=== PATIENT | female | born 1960 | race Caucasian/White ===

== ENCOUNTER 2019-12-15 15:47 | Emergency (ER) | payer MEDICAID ==
[2019-12-15] MEDS ORDERED: Sodium Chloride 0.9% 2.5 ML Syringe FLUSH PRN (16:21)
[2019-12-15] MEDS ORDERED: Sodium Chloride 0.9% 10 ML Syringe FLUSH PRN (16:21)
--- NOTE | 2019-12-15 16:27 | EDM.PDOC ---
ED HPI GENERAL MEDICAL PROBLEM - General Chief Complaint: Gastrointestinal Problem Stated Complaint: RECTAL BLEEDING Time Seen by Provider: 12/15/19 15:53 Source of Information: Reports: Patient History Limitations: Reports: No Limitations - History of Present Illness INITIAL COMMENTS - FREE TEXT/NARRATIVE: History of present illness: 59-year-old female presenting with rectal bleeding for the last 2 days. She thought on the first day that she had to have some diarrhea, and when she sat down on the toilet and had what felt like diarrhea, she noticed that it was actually straight blood. She does report history of rectal bleeding on and off associated with straining. Over she has never had a bleed like this before. She had her last colonoscopy in August of this year and was told she had polyps that were nonmalignant but that she had rectal prolapse and she had scheduled surgery for September but due to the pandemic surgery was deferred. Denies any chest pain or difficulty breathing. She does report she has been undergoing intense stress lately because she has been caring for her daughter who had a stroke and for all her daughter's pets. She also reports that she recently found out she had stage IV kidney disease that she did not know of previously. 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 She has not had any adjustment in the dose, although she reports that due to her stress and caring for her daughter she has occasionally missed some doses or taken it later in the day than usual. She also noted that her right leg skin is started to become red and itchy and that her right leg was slightly swollen compared to the left, which is where she had a previous DVT years ago and her symptoms today are similar to when the DVT was first diagnosed years ago. Past medical history, lupus, cholesterol, colon polyps, PE/DVT, ? [place] filter? Review of systems: As per history of present illness and below otherwise all systems reviewed and negative. Past medical history: As per history of present illness and as reviewed below otherwise noncontributory. Surgical history: As per history of present illness and as reviewed below otherwise noncontributory. Social history: No reported history of drug or alcohol abuse. Family history: As per history of present illness and as reviewed below otherwise noncontributory. Physical exam: GEN: no acute distress, well appearing HEENT: Atraumatic, normocephalic, mucous membranes moist, Neck: supple, nontender, trachea midline. Lungs: No respiratory distress. Heart: RRR Abdomen: Soft, nondistended, nontender. Rectal exam: No signs of rectal prolapse nor external hemorrhoids. External exam unremarkable. No stool in the vault or on the glove. No visible blood. Occult blood is positive. Control tested and successful. Back: nontender Extremities: Atraumatic. Neurovascularly intact. Right calf tenderness, mild erythema and some swelling. Neuro: Awake, alert, oriented. Neuro Exam nonfocal. Skin: warm, dry, no lesions, mild erythema over the right calf/leg that is not warm to touch and does not appear cellulitic Diagnostics: [] Therapeutics: [] MDM: Rectal bleeding, heavy at first and now minimal, on Xarelto for chronic PE/DVT. Also complains of right lower extremity swelling. Will check ultrasound. Ultrasound negative for DVT. Hemoglobin 11.6. INR not elevated. Patient in no distress. Vital signs stable. Discussed with admitting hospitalist and general surgeon over the phone, both recommended admission for monitoring based on patient's anticoagulation usage. However on reassessment the patient refused admission but agrees to return to the ER if the bleeding worsens at all. The bleeding has now stopped. Impression: [] Plan: [] Definitive disposition and diagnosis as appropriate pending reevaluation and review of above. Right Leg Pain Score (Numeric/FACES): 8 - Related Data Allergies Allergy/AdvReac Type Severity Reaction Status Date / Time NSAIDS (Non-Steroidal Allergy Cardiac Verified 12/15/19 16:08 Anti-Inflamma Arrest Penicillins Allergy Hives Verified 12/15/19 16:08 Home Meds: Home Meds Omeprazole 20 mg PO DAILY 12/15/19 [History] Rivaroxaban [Xarelto] 20 mg PO DAILY 12/15/19 [History] atenoloL [Atenolol] 50 mg PO DAILY 12/15/19 [History] hydroCHLOROthiazide [Hydrochlorothiazide] 25 mg PO DAILY 12/15/19 [History] lisinopriL [Lisinopril] 40 mg PO DAILY 12/15/19 [History] Past Medical History Cardiovascular History: Reports: Blood Clots/VTE/DVT, High Cholesterol, Hypertension, Prior Cardiac Arrest Gastrointestinal History: Reports: Colon Polyp, GERD - Infectious Disease History Infectious Disease History: Reports: None - Past Surgical History GI Surgical History: Reports: Colonoscopy, Polypectomy Social & Family History - Family History Family Medical History: Noncontributory - Tobacco Use Smoking Status *Q: Current Every Day Smoker Years of Tobacco use: 30 Packs/Tins Daily: 1 - Caffeine Use Caffeine Use: Reports: None - Recreational Drug Use Recreational Drug Use: Yes Drug Use in Last 12 Months: No Recreational Drug Type: Reports: Cocaine ED ROS GENERAL - Review of Systems Review Of Systems: See Below (See dictation) ED EXAM, GI/ABD - Physical Exam Exam: See Below (See dictation) Course - Vital Signs Last Recorded V/S: Last Vital Signs Temp 97.6 F 12/15/19 16:12 Pulse 78 12/15/19 16:12 Resp 18 12/15/19 16:12 BP 129/72 12/15/19 16:12 Pulse Ox 97 12/15/19 16:12 - Orders/Labs/Meds Orders: Active Orders 24 hr Category Date Time Status Patient Status [ADT] Routine ADT 12/15/19 17:57 Active Notify Provider Consults [RC] ASDIRECTED Care 12/15/19 17:58 Active Consult to Physician [CONS] Stat Cons 12/15/19 17:57 Active Saline Lock Insert [OM.PC] Stat Oth 12/15/19 16:22 Ordered Labs: Laboratory Tests 12/15/19 12/15/19 12/15/19 Range/Units 16:44 16:44 16:44 WBC 5.52 (4.0-11.0) K/uL RBC 3.85 L (4.30-5.90) M/uL Hgb 11.6 L (12.0-16.0) g/dL Hct 36.2 (36.0-46.0) % MCV 94.0 (80.0-98.0) fL MCH 30.1 (27.0-32.0) pg MCHC 32.0 (31.0-37.0) g/dL RDW Std Deviation 45.4 (28.0-62.0) fl RDW Coeff of Liang 13 (11.0-15.0) % Plt Count 218 (150-400) K/uL MPV 10.60 (7.40-12.00) fL Neut % (Auto) 42.4 L (48.0-80.0) % Lymph % (Auto) 44.2 H (16.0-40.0) % [place] % (Auto) 10.1 (0.0-15.0) % Eos % (Auto) 3.1 (0.0-7.0) % Baso % (Auto) 0.2 (0.0-1.5) % Neut # (Auto) 2.3 (1.4-5.7) K/uL Lymph # (Auto) 2.4 (0.6-2.4) K/uL [place] # (Auto) 0.6 (0.0-0.8) K/uL Eos # (Auto) 0.2 (0.0-0.7) K/uL Baso # (Auto) 0.0 (0.0-0.1) K/uL Nucleated RBC % 0.0 /100WBC Nucleated RBCs # 0 K/uL INR 1.29 Sodium 143 (136-145) mmol/L Potassium 4.0 (3.5-5.1) mmol/L Chloride 107 (98-107) mmol/L Carbon Dioxide 26.0 (21.0-32.0) mmol/L BUN 32 H (7.0-18.0) mg/dL Creatinine 1.5 H (0.6-1.0) mg/dL Est Cr Clr Drug Dosing 39.27 mL/min Estimated GFR (MDRD) 35.5 ml/min Glucose 87 (74-106) mg/dL Calcium 8.9 (8.5-10.1) mg/dL Total Bilirubin 0.3 (0.2-1.0) mg/dL AST 33 (15-37) IU/L ALT 35 (14-63) IU/L Alkaline Phosphatase 47 (46-116) U/L Total Protein 7.8 (6.4-8.2) g/dL Albumin 4.0 (3.4-5.0) g/dL Globulin 3.8 (2.6-4.0) g/dL Albumin/Globulin Ratio 1.1 (0.9-1.6) Meds: Medications Discontinued Medications Generic Name Dose Route Start Last Admin Trade Name Freq PRN Reason Stop Dose Admin Sodium Chloride 10 ml 12/15/19 16:21 Saline Flush FLUSH ASDIRECTED PRN Keep Vein Open Sodium Chloride 2.5 ml 12/15/19 16:21 Saline Flush FLUSH ASDIRECTED PRN Keep Vein Open - Re-Assessments/Exams Free Text/Narrative Re-Assessment/Exam: 12/15/19 17:[address] Snow, hospitalist, in regards to possible admission versus discharge he recommends to discuss case with Dr. Ogden, the surgeon. I did discuss this case with Dr. Ogden who requests to admit the patient to the hospitalist and he will consult on the patient and continue to monitor in case of increasing or continued bleeding and in case she may need endoscopy. 12/15/19 18:00 When I went to discuss final disposition planning with the patient, she reports that she is very concerned about leaving her daughter alone at home. She refused admission. She signed AMA paperwork. Dr. Snow and Dr. Ogden were notified. Departure - Departure Time of Disposition: 17:56 Disposition: Against Medical Advice 07 Clinical Impression: Rectal bleeding - Discharge Information Referrals: PCP,Not In Area [Primary Care Provider] - Forms: ED Department Discharge Sepsis Event Note (ED) - Evaluation Sepsis Screening Result: No Definite Risk - Focused Exam Vital Signs: Vital Signs Temp Pulse Resp BP Pulse Ox 12/15/19 16:12 97.6 F 78 18 129/72 97 - My Orders Last 24 Hours: My Active Orders 12/15/19 16:22 Saline Lock Insert [OM.PC] Stat 12/15/19 17:57 Patient Status [ADT] Routine Consult to Physician [CONS] Stat 12/15/19 17:58 Notify Provider Consults [RC] ASDIRECTED - Assessment/Plan Last 24 Hours: My Active Orders 12/15/19 16:22 Saline Lock Insert [OM.PC] Stat 12/15/19 17:57 Patient Status [ADT] Routine Consult to Physician [CONS] Stat 12/15/19 17:58 Notify Provider Consults [RC] ASDIRECTED
--- NOTE | 2019-12-15 17:35 | US ---
Right lower extremity deep venous ultrasound: Duplex and color Doppler evaluation was obtained of the right common femoral, superficial femoral, popliteal, posterior tibial and peroneal veins. Findings: Normal compression and phasic flow is seen. Impression: 1. No evidence of deep venous thrombosis within the right lower extremity. Diagnostic code #1 This report was dictated in MDT
--- NOTE | 2019-12-16 09:08 | PCM.SN.2 ---
- Free Text/Narrative Note: pt left AMA before provider able to attend to.
== END 2019-12-15 18:13 | disposition left against medical advice (07) ==
LOC: MW.ED 15:47
DX: K62.5 Hemorrhage of anus and rectum (principal); I10 Essential (primary) hypertension; K21.9 Gastro-esophageal reflux disease without esophagitis; Z86.718 Personal history of other venous thrombosis and embolism; F17.210 Nicotine dependence, cigarettes, uncomplicated; Z88.0 Allergy status to penicillin; Z88.8 Allergy status to other drugs, medicaments and biological substances; Z79.01 Long term (current) use of anticoagulants; Z79.899 Other long term (current) drug therapy
CPT/HCPCS: 36415; 80053; 85025; 85610; 93971-26-RT; 93971-RT; 99284-25

== ENCOUNTER 2019-12-20 21:30 | Emergency (ER) | payer MEDICAID ==
--- NOTE | 2019-12-20 22:14 | EDM.PDOC ---
ED HPI GENERAL MEDICAL PROBLEM - General Chief Complaint: Gastrointestinal Problem Stated Complaint: rectal bleeding Time Seen by Provider: 12/20/19 21:50 Source of Information: Reports: Patient History Limitations: Reports: No Limitations - History of Present Illness INITIAL COMMENTS - FREE TEXT/NARRATIVE: 59-year-old female with history of CKD, DVT, PE, lupus, rectal prolapse presents with rectal bleeding. She is currently on Xarelto. She is visiting from [place] and plans to leave for [place] tomorrow. She had a colonoscopy done in August and subsequently had polypectomy performed. She was supposed to have surgery performed for her rectal prolapse in September but was deferred secondary to COVID. She was seen in the ED here last week and was discharged after having right red blood per rectum. Tonight she tried to have a bowel movement and had bright red blood per rectum x2 episodes. She denies rectal pain, abdominal pain, fever, chills, nausea, vomiting, chest pain, shortness of breath, lightheadedness, near syncope. She wants to make sure that she is safe to go back to [place] tomorrow. ROS: A 10-point review of systems, other than pertinent positives and negatives as stated per HPI, is otherwise negative PHYSICAL EXAM General: AOx4, GCS = 15, No distress HEENT: dry mucous membrane Neck: supple, no meningismus, no Kernig or Brudzinski Cardiac: S1S2 RRR Respiratory: CTAB, no crackles or rales, no wheezing Abdomen: Soft, nontender, no rebound or guarding, nondistended, no pulsatile mass. Back: nontender Musculoskeletal: NVI distally, no deformity Neuro: No focal deficits, CN 2 - 12 WNL. MEDICAL DECISION MAKING: I reviewed the patients past medical records, lab and radiographic findings. I discussed the case with family members. My differential diagnosis included: GI bleed, rectal prolapse, electrolyte abnormality. Her hemoglobin on 12/14 = 11.6, today she is at 12.3, improved from previous. She is not tachycardic or hypotensive, she does not have pale conjunctiva, she is not near syncopal on history, she denies chest pain or shortness of breath, I do not suspect she needs to be admitted for emergent GI consult. Back Pain Score (Numeric/FACES): 7 - Related Data Allergies Allergy/AdvReac Type Severity Reaction Status Date / Time NSAIDS (Non-Steroidal Allergy Cardiac Verified 12/20/19 21:57 Anti-Inflamma Arrest Penicillins Allergy Hives Verified 12/20/19 21:57 Home Meds: Home Meds Omeprazole 20 mg PO DAILY 12/15/19 [History] Rivaroxaban [Xarelto] 20 mg PO DAILY 12/15/19 [History] atenoloL [Atenolol] 50 mg PO DAILY 12/15/19 [History] hydroCHLOROthiazide [Hydrochlorothiazide] 25 mg PO DAILY 12/15/19 [History] lisinopriL [Lisinopril] 40 mg PO DAILY 12/15/19 [History] Past Medical History Cardiovascular History: Reports: Blood Clots/VTE/DVT, High Cholesterol, Hypertension, Prior Cardiac Arrest Gastrointestinal History: Reports: Colon Polyp, GERD - Infectious Disease History Infectious Disease History: Reports: None - Past Surgical History GI Surgical History: Reports: Colonoscopy, Polypectomy Social & Family History - Family History Family Medical History: Noncontributory - Caffeine Use Caffeine Use: Reports: None ED ROS GENERAL - Review of Systems Review Of Systems: See Below (see dictation) ED EXAM, GI/ABD - Physical Exam Exam: See Below General Appearance: Alert Course - Vital Signs Last Recorded V/S: Last Vital Signs Temp 96.6 F L 12/21/19 00:42 Pulse 80 12/21/19 00:42 Resp 18 12/21/19 00:42 BP 119/72 12/21/19 00:42 Pulse Ox 99 12/21/19 00:42 - Orders/Labs/Meds Orders: Active Orders 24 hr Category Date Time Status Saline Lock Insert [OM.PC] Stat Oth 12/20/19 22:07 Ordered Labs: Laboratory Tests 12/20/19 12/20/19 12/20/19 Range/Units 22:25 22:25 22:25 WBC 8.86 (4.0-11.0) K/uL RBC 4.09 L (4.30-5.90) M/uL Hgb 12.3 (12.0-16.0) g/dL Hct 38.6 (36.0-46.0) % MCV 94.4 (80.0-98.0) fL MCH 30.1 (27.0-32.0) pg MCHC 31.9 (31.0-37.0) g/dL RDW Std Deviation 45.2 (28.0-62.0) fl RDW Coeff of Liang 13 (11.0-15.0) % Plt Count 252 (150-400) K/uL MPV 10.50 (7.40-12.00) fL Neut % (Auto) 57.7 (48.0-80.0) % Lymph % (Auto) 29.6 (16.0-40.0) % [place] % (Auto) 10.7 (0.0-15.0) % Eos % (Auto) 1.9 (0.0-7.0) % Baso % (Auto) 0.1 (0.0-1.5) % Neut # (Auto) 5.1 (1.4-5.7) K/uL Lymph # (Auto) 2.6 H (0.6-2.4) K/uL [place] # (Auto) 1.0 H (0.0-0.8) K/uL Eos # (Auto) 0.2 (0.0-0.7) K/uL Baso # (Auto) 0.0 (0.0-0.1) K/uL Nucleated RBC % 0.0 /100WBC Nucleated RBCs # 0 K/uL INR 1.16 APTT 27.9 (18.6-31.3) SEC Lactate (0.20-2.00) mmol/L Sodium 142 (136-145) mmol/L Potassium 3.9 (3.5-5.1) mmol/L Chloride 105 (98-107) mmol/L Carbon Dioxide 26.7 (21.0-32.0) mmol/L BUN 31 H (7.0-18.0) mg/dL Creatinine 1.5 H (0.6-1.0) mg/dL Est Cr Clr Drug Dosing 40.37 mL/min Estimated GFR (MDRD) 35.5 ml/min Glucose 102 (74-106) mg/dL Calcium 8.8 (8.5-10.1) mg/dL Total Bilirubin 0.3 (0.2-1.0) mg/dL AST 31 (15-37) IU/L ALT 38 (14-63) IU/L Alkaline Phosphatase 55 (46-116) U/L Troponin I < 0.050 (0.000-0.056) ng/mL Total Protein 8.3 H (6.4-8.2) g/dL Albumin 4.5 (3.4-5.0) g/dL Globulin 3.8 (2.6-4.0) g/dL Albumin/Globulin Ratio 1.2 (0.9-1.6) Lipase 165 (73-393) U/L Blood Type Antibody Screen 12/20/19 12/20/19 12/21/19 Range/Units 22:25 22:25 00:38 WBC (4.0-11.0) K/uL RBC (4.30-5.90) M/uL Hgb 11.2 L (12.0-16.0) g/dL Hct (36.0-46.0) % MCV (80.0-98.0) fL MCH (27.0-32.0) pg MCHC (31.0-37.0) g/dL RDW Std Deviation (28.0-62.0) fl RDW Coeff of Liang (11.0-15.0) % Plt Count (150-400) K/uL MPV (7.40-12.00) fL Neut % (Auto) (48.0-80.0) % Lymph % (Auto) (16.0-40.0) % [place] % (Auto) (0.0-15.0) % Eos % (Auto) (0.0-7.0) % Baso % (Auto) (0.0-1.5) % Neut # (Auto) (1.4-5.7) K/uL Lymph # (Auto) (0.6-2.4) K/uL [place] # (Auto) (0.0-0.8) K/uL Eos # (Auto) (0.0-0.7) K/uL Baso # (Auto) (0.0-0.1) K/uL Nucleated RBC % /100WBC Nucleated RBCs # K/uL INR APTT (18.6-31.3) SEC Lactate 0.6 (0.20-2.00) mmol/L Sodium (136-145) mmol/L Potassium (3.5-5.1) mmol/L Chloride (98-107) mmol/L Carbon Dioxide (21.0-32.0) mmol/L BUN (7.0-18.0) mg/dL Creatinine (0.6-1.0) mg/dL Est Cr Clr Drug Dosing mL/min Estimated GFR (MDRD) ml/min Glucose (74-106) mg/dL Calcium (8.5-10.1) mg/dL Total Bilirubin (0.2-1.0) mg/dL AST (15-37) IU/L ALT (14-63) IU/L Alkaline Phosphatase (46-116) U/L Troponin I (0.000-0.056) ng/mL Total Protein (6.4-8.2) g/dL Albumin (3.4-5.0) g/dL Globulin (2.6-4.0) g/dL Albumin/Globulin Ratio (0.9-1.6) Lipase (73-393) U/L Blood Type A NEGATIVE Antibody Screen NEGATIVE - Re-Assessments/Exams Free Text/Narrative Re-Assessment/Exam: 12/21/19 00:56 After treatments and a prolonged observation period in the ER, the patient improved clinically and is stable for discharge. I performed a repeat examination and the patient has not demonstrated any new abnormal findings. Patient exhibits normal vital signs and has exhibited a normal gait. I advised the patient to return to the ER for reevaluation if symptoms worsened, and to follow up with their PCP at [facility] within 2-3 days. Departure - Departure Time of Disposition: 00:55 Disposition: Home, Self-Care 01 Condition: Good Clinical Impression: Rectal bleeding - Discharge Information *PRESCRIPTION DRUG MONITORING PROGRAM REVIEWED*: Not Applicable *COPY OF PRESCRIPTION DRUG MONITORING REPORT IN PATIENT COY: Not Applicable Instructions: Rectal Bleeding, [id number] Referrals: PCP,Not In Area [Primary Care Provider] - Forms: ED Department Discharge Additional Instructions: The following information is given to patients seen in the emergency department who are being discharged to home. This information is to outline your options for follow-up care. We provide all patients seen in our emergency department with a follow-up referral. The need for follow-up, as well as the timing and circumstances, are variable depending upon the specifics of your emergency department visit. If you don't have a primary care physician on staff, we will provide you with a referral. We always advise you to contact your personal physician following an emergency department visit to inform them of the circumstance of the visit and for follow-up with them and/or the need for any referrals to a consulting specialist. The emergency department will also refer you to a specialist when appropriate. This referral assures that you have the opportunity for follow-up care with a specialist. All of these measure are taken in an effort to provide you with optimal care, which includes your follow-up. Under all circumstances we always encourage you to contact your private physician who remains a resource for coordinating your care. When calling for follow-up care, please make the office aware that this follow-up is from your recent emergency room visit. If for any reason you are refused follow-up, please contact the [facility] Emergency Department at and asked to speak to the emergency department charge nurse. If you do not have a primary care doctor, please follow up with the clinics below within 3-5 days. [facility] - Primary Care [address] [place] [id number] [address] Sepsis Event Note (ED) - Evaluation Sepsis Screening Result: No Definite Risk - Focused Exam Vital Signs: Vital Signs Temp Pulse Resp BP Pulse Ox 12/21/19 00:42 96.6 F L 80 18 119/72 99 12/20/19 21:53 96.0 F L 93 16 126/78 98 - My Orders Last 24 Hours: My Active Orders 12/20/19 22:07 Saline Lock Insert [OM.PC] Stat - Assessment/Plan Last 24 Hours: My Active Orders 12/20/19 22:07 Saline Lock Insert [OM.PC] Stat
--- NOTE | 2019-12-20 22:36 | CR ---
Chest: Portable view of the chest was obtained. Comparison: No prior chest imaging is available. Heart size and mediastinum are normal. Lungs show no acute parenchymal change. Bony structures are grossly intact. Slight scoliosis is present. Impression: 1. Nothing acute is seen on portable chest x-ray. Diagnostic code #2 Study was dictated in MDT
[2019-12-20 22:57] LABS: BLOOD UREA NITROGEN,BUN 31 mg/dL (7.0-18.0); CARBON DIOXIDE,CO2 26.7 mmol/L (21.0-32.0); CHLORIDE,CL 105 mmol/L (98-107); GLUCOSE RANDOM 102 mg/dL (74-106); LIPASE 165 U/L (73-393); POTASSIUM,K 3.9 mmol/L (3.5-5.1); SODIUM,NA 142 mmol/L (136-145)
== END 2019-12-21 01:12 | disposition home or self-care (01) ==
LOC: MW.ED 21:30
DX: K62.5 Hemorrhage of anus and rectum (principal); M32.9 Systemic lupus erythematosus, unspecified; I12.9 Hypertensive chronic kidney disease with stage 1 through stage 4 chronic kidney disease, or unspecified chronic kidney disease; N18.9 Chronic kidney disease, unspecified; K21.9 Gastro-esophageal reflux disease without esophagitis; Z86.718 Personal history of other venous thrombosis and embolism; Z79.01 Long term (current) use of anticoagulants; Z88.6 Allergy status to analgesic agent; Z88.0 Allergy status to penicillin; Z79.899 Other long term (current) drug therapy
CPT/HCPCS: 36415; 71045; 71045-26; 80053; 83605; 83690; 84484; 85018; 85025; 85610; 85730; 86850; 86900; 86901; 99282; 99283-25

== ENCOUNTER 2023-11-11 18:30 | Emergency (ER) | payer MEDICAID ==
[2023-11-11 19:51] LABS: BASOPHILS ABSOLUTE AUTO 0.02 K/uL (0.00-0.20); BASOPHILS PERCENT AUTO 0.3 % (0.0-1.0); EOSINOPHILS PERCENT AUTO 2.6 % (0.0-6.0); HEMATOCRIT 32.2 % (37.0-47.0); IMMATURE GRAN ABSOLUTE AUTO 0.03 K/uL (0.00-0.05); IMMATURE GRAN PERCENT AUTO 0.4 % (0.0-0.4); LYMPHOCYTES ABSOLUTE AUTO 2.26 K/uL (1.00-4.80); LYMPHOCYTES PERCENT AUTO 29.1 % (24.0-44.0); MEAN CORPUSCULAR HEMOGLOBIN 31.3 pg (28.0-32.0); MEAN CORPUSCULAR HGB CONC 31.1 g/dL (32.0-36.0); MEAN CORPUSCULAR VOLUME 100.6 fL (83.0-99.0); MEAN PLATELET VOLUME 9.7 fL (9.4-12.3); MONOCYTES ABSOLUTE AUTO 0.67 K/uL (0.00-0.80); MONOCYTES PERCENT AUTO 8.6 % (0.0-8.0); NEUTROPHILS ABSOLUTE AUTO 4.58 K/uL (1.80-7.70); PLATELET COUNT,PLT 189 K/uL (150-400); WHITE BLOOD CELL COUNT,WBC 7.76 K/uL (3.9-11.3)
[2023-11-11] MEDS: Sodium Chloride 0.9% 10 ML Syringe FLUSH PRN (19:52)
[2023-11-11] MEDS: Sodium Chloride 0.9% 2.5 ML Syringe FLUSH PRN (19:52)
[2023-11-11] MEDS: Ondansetron 4 MG/2 ML SDV IVPUSH ONE (19:53)
[2023-11-11 20:04] LABS: INR 1.08 (0.86-1.11); PTT,PARTIAL THROMBOPLSTIN TIME 27.1 SEC (23.9-30.7)
[2023-11-11 20:19] LABS: A/G RATIO 0.9 (0.9-1.6); ALBUMIN 3.6 g/dL (3.4-5.0); BILIRUBIN TOTAL 0.4 mg/dL (0.2-1.0); CALCIUM 7.6 mg/dL (8.5-10.1); CARBON DIOXIDE,CO2 22.2 mmol/L (21.0-32.0); CREATININE 7.4 mg/dL (0.6-1.0); EST CRCL DRUG DOSING (CG) 7.57 mL/min; MAGNESIUM 1.3 mg/dL (1.8-2.4); POTASSIUM,K 4.8 mmol/L (3.5-5.1); PROTEIN TOTAL,TP 7.7 g/dL (6.4-8.2)
== END 2023-11-11 22:07 ==
LOC: MW.ED 18:30
DX: G45.9 Transient cerebral ischemic attack, unspecified (principal); I10 Essential (primary) hypertension; N18.6 End stage renal disease; Z99.2 Dependence on renal dialysis; J44.9 Chronic obstructive pulmonary disease, unspecified; K21.9 Gastro-esophageal reflux disease without esophagitis; F17.210 Nicotine dependence, cigarettes, uncomplicated; Z88.0 Allergy status to penicillin; Z88.8 Allergy status to other drugs, medicaments and biological substances; Z79.899 Other long term (current) drug therapy; Z90.710 Acquired absence of both cervix and uterus
CPT/HCPCS: 36415; 71045; 80053; 82947; 83735; 84484; 85025; 85610; 85730; 93005; 96374; 99285; J2405; J3490; 93010; 99291

== ENCOUNTER 2024-03-31 10:27 | Emergency (ER) | payer MEDICAID ==
[2024-03-31 11:14] LABS: BASOPHILS ABSOLUTE AUTO 0.02 K/uL (0.00-0.20); BASOPHILS PERCENT AUTO 0.2 % (0.0-1.0); EOSINOPHILS ABSOLUTE AUTO 0.25 K/uL (0.00-0.45); HEMATOCRIT 30.9 % (37.0-47.0); HEMOGLOBIN 10.1 g/dL (12.0-16.0); IMMATURE GRAN ABSOLUTE AUTO 0.03 K/uL (0.00-0.05); IMMATURE GRAN PERCENT AUTO 0.4 % (0.0-0.4); LYMPHOCYTES PERCENT AUTO 16.9 % (24.0-44.0); MEAN CORPUSCULAR HEMOGLOBIN 31.6 pg (28.0-32.0); MEAN CORPUSCULAR HGB CONC 32.7 g/dL (32.0-36.0); MEAN CORPUSCULAR VOLUME 96.6 fL (83.0-99.0); MEAN PLATELET VOLUME 9.7 fL (9.4-12.3); MONOCYTES ABSOLUTE AUTO 0.58 K/uL (0.00-0.80); NEUTROPHILS ABSOLUTE AUTO 6.02 K/uL (1.80-7.70); NEUTROPHILS PERCENT AUTO 72.5 % (41.0-71.0); PLATELET COUNT,PLT 227 K/uL (150-400)
[2024-03-31 11:52] LABS: ALBUMIN 4.1 g/dL (3.4-5.0); BILIRUBIN TOTAL 0.6 mg/dL (0.2-1.0); CARBON DIOXIDE,CO2 23.6 mmol/L (21.0-32.0); CREATININE 4.3 mg/dL (0.6-1.0); EST CRCL DRUG DOSING (CG) 13.02 mL/min; PROTEIN TOTAL,TP 8.2 g/dL (6.4-8.2)
[2024-03-31 12:04] LABS: CORONAVIRUS COVID-19 NAA NEGATIVE (NEGATIVE); INFLUENZA A NAA NEGATIVE (NEGATIVE); INFLUENZA B NAA NEGATIVE (NEGATIVE)
== END 2024-03-31 12:44 | disposition home or self-care (01) ==
LOC: MW.ED 10:27
DX: R07.9 Chest pain, unspecified (principal); I10 Essential (primary) hypertension; J44.9 Chronic obstructive pulmonary disease, unspecified; K21.9 Gastro-esophageal reflux disease without esophagitis; Z95.9 Presence of cardiac and vascular implant and graft, unspecified; Z90.49 Acquired absence of other specified parts of digestive tract; Z88.6 Allergy status to analgesic agent; Z79.899 Other long term (current) drug therapy; Z88.0 Allergy status to penicillin
CPT/HCPCS: 0240U; 36415; 71045; 80053; 83880; 84484; 85025; 93005; 99285

== ENCOUNTER 2024-04-24 00:53 | Emergency (ER) | payer MEDICAID ==
[2024-04-24 01:16] LABS: BASOPHILS ABSOLUTE AUTO 0.01 K/uL (0.00-0.20); BASOPHILS PERCENT AUTO 0.1 % (0.0-1.0); EOSINOPHILS ABSOLUTE AUTO 0.24 K/uL (0.00-0.45); EOSINOPHILS PERCENT AUTO 2.5 % (0.0-6.0); HEMATOCRIT 26.4 % (37.0-47.0); IMMATURE GRAN ABSOLUTE AUTO 0.04 K/uL (0.00-0.05); IMMATURE GRAN PERCENT AUTO 0.4 % (0.0-0.4); LYMPHOCYTES ABSOLUTE AUTO 2.05 K/uL (1.00-4.80); LYMPHOCYTES PERCENT AUTO 21.3 % (24.0-44.0); MEAN CORPUSCULAR HEMOGLOBIN 32.5 pg (28.0-32.0); MEAN CORPUSCULAR HGB CONC 34.1 g/dL (32.0-36.0); MEAN CORPUSCULAR VOLUME 95.3 fL (83.0-99.0); MEAN PLATELET VOLUME 9.6 fL (9.4-12.3); MONOCYTES ABSOLUTE AUTO 0.84 K/uL (0.00-0.80); MONOCYTES PERCENT AUTO 8.7 % (0.0-8.0); NEUTROPHILS ABSOLUTE AUTO 6.46 K/uL (1.80-7.70); PLATELET COUNT,PLT 208 K/uL (150-400); RED BLOOD CELL COUNT 2.77 M/uL (4.10-5.30); WHITE BLOOD CELL COUNT,WBC 9.64 K/uL (3.9-11.3)
[2024-04-24 01:44] LABS: A/G RATIO 1.1 (0.9-1.6); BILIRUBIN TOTAL 0.3 mg/dL (0.2-1.0); CALCIUM 8.3 mg/dL (8.5-10.1); CARBON DIOXIDE,CO2 27.9 mmol/L (21.0-32.0); POTASSIUM,K 3.7 mmol/L (3.5-5.1); PROTEIN TOTAL,TP 7.8 g/dL (6.4-8.2)
[2024-04-24] MEDS: Sodium Chloride 0.9% 10 ML Syringe FLUSH PRN (02:22)
[2024-04-24] MEDS: Lidocaine 4% 1 each Patch TOP ONE (02:23)
[2024-04-24] MEDS: Sodium Chloride 0.9% 2.5 ML Syringe FLUSH PRN (02:23)
== END 2024-04-24 04:20 | disposition left against medical advice (07) ==
LOC: MW.ED 00:53
DX: R07.9 Chest pain, unspecified (principal); I10 Essential (primary) hypertension; J44.9 Chronic obstructive pulmonary disease, unspecified; K21.9 Gastro-esophageal reflux disease without esophagitis; Z90.710 Acquired absence of both cervix and uterus; Z79.899 Other long term (current) drug therapy; Z88.6 Allergy status to analgesic agent; Z88.0 Allergy status to penicillin; Z75.8 Other problems related to medical facilities and other health care
CPT/HCPCS: 36415; 71045; 80053; 84484; 85025; 99285; A9270; J3490

== ENCOUNTER 2024-05-13 14:31 | Emergency (ER) | payer MEDICAID ==
[2024-05-13] MEDS: Ondansetron 4 MG/2 ML SDV IVPUSH ONE (16:38)
[2024-05-13] MEDS: Lidocaine 4% 1 each Patch TOP STA (16:38)
[2024-05-13] MEDS: Morphine 4 MG/ML Syringe IVPUSH ONE (16:39)
[2024-05-13 16:58] LABS: BASOPHILS ABSOLUTE AUTO 0.01 K/uL (0.00-0.20); BASOPHILS PERCENT AUTO 0.1 % (0.0-1.0); EOSINOPHILS ABSOLUTE AUTO 0.19 K/uL (0.00-0.45); EOSINOPHILS PERCENT AUTO 2.7 % (0.0-6.0); HEMATOCRIT 26.8 % (37.0-47.0); HEMOGLOBIN 9.4 g/dL (12.0-16.0); IMMATURE GRAN ABSOLUTE AUTO 0.02 K/uL (0.00-0.05); IMMATURE GRAN PERCENT AUTO 0.3 % (0.0-0.4); LYMPHOCYTES ABSOLUTE AUTO 1.26 K/uL (1.00-4.80); LYMPHOCYTES PERCENT AUTO 17.8 % (24.0-44.0); MEAN CORPUSCULAR HEMOGLOBIN 33.1 pg (28.0-32.0); MEAN CORPUSCULAR HGB CONC 35.1 g/dL (32.0-36.0); MEAN CORPUSCULAR VOLUME 94.4 fL (83.0-99.0); MEAN PLATELET VOLUME 9.7 fL (9.4-12.3); MONOCYTES ABSOLUTE AUTO 0.79 K/uL (0.00-0.80); MONOCYTES PERCENT AUTO 11.2 % (0.0-8.0); NEUTROPHILS PERCENT AUTO 67.9 % (41.0-71.0); PLATELET COUNT,PLT 182 K/uL (150-400); RED BLOOD CELL COUNT 2.84 M/uL (4.10-5.30); WHITE BLOOD CELL COUNT,WBC 7.07 K/uL (3.9-11.3)
[2024-05-13] MEDS: Codeine/guaiFENesin 10-100 MG/5 ML Syrup 5 ML Cup PO ONE (17:05)
[2024-05-13] MEDS: traMADol 50 MG Tab PO ONE (17:05)
[2024-05-13 17:40] LABS: A/G RATIO 1.1 (0.9-1.6); ALBUMIN 4.1 g/dL (3.4-5.0); BILIRUBIN TOTAL 0.5 mg/dL (0.2-1.0); CALCIUM 9.1 mg/dL (8.5-10.1); CARBON DIOXIDE,CO2 30.2 mmol/L (21.0-32.0); EST CRCL DRUG DOSING (CG) 18.67 mL/min; MAGNESIUM 1.6 mg/dL (1.8-2.4); POTASSIUM,K 3.1 mmol/L (3.5-5.1)
== END 2024-05-13 18:32 | disposition left against medical advice (07) ==
LOC: MW.ED 14:31
DX: R07.9 Chest pain, unspecified (principal); R05.9 Cough, unspecified; I10 Essential (primary) hypertension; J44.9 Chronic obstructive pulmonary disease, unspecified; K21.9 Gastro-esophageal reflux disease without esophagitis; Z90.710 Acquired absence of both cervix and uterus; F17.210 Nicotine dependence, cigarettes, uncomplicated; Z79.899 Other long term (current) drug therapy; Z88.6 Allergy status to analgesic agent; Z88.0 Allergy status to penicillin; Z75.8 Other problems related to medical facilities and other health care
CPT/HCPCS: 36415; 71046; 80053; 83690; 83735; 84484; 85025; 93005; 96374; 99285; A9270; J2405; 93010

== ENCOUNTER 2024-05-14 11:57 | Emergency (ER) | payer MEDICAID ==
[2024-05-14] MEDS ORDERED: Sodium Chloride 0.9% 2.5 ML Syringe FLUSH PRN (12:25)
[2024-05-14 13:13] LABS: BASOPHILS ABSOLUTE AUTO 0.01 K/uL (0.00-0.20); BASOPHILS PERCENT AUTO 0.2 % (0.0-1.0); EOSINOPHILS ABSOLUTE AUTO 0.21 K/uL (0.00-0.45); EOSINOPHILS PERCENT AUTO 3.2 % (0.0-6.0); HEMATOCRIT 27.8 % (37.0-47.0); HEMOGLOBIN 9.4 g/dL (12.0-16.0); IMMATURE GRAN ABSOLUTE AUTO 0.02 K/uL (0.00-0.05); IMMATURE GRAN PERCENT AUTO 0.3 % (0.0-0.4); LYMPHOCYTES ABSOLUTE AUTO 1.33 K/uL (1.00-4.80); LYMPHOCYTES PERCENT AUTO 20.1 % (24.0-44.0); MEAN CORPUSCULAR HGB CONC 33.8 g/dL (32.0-36.0); MEAN CORPUSCULAR VOLUME 97.5 fL (83.0-99.0); MEAN PLATELET VOLUME 9.6 fL (9.4-12.3); MONOCYTES ABSOLUTE AUTO 0.78 K/uL (0.00-0.80); MONOCYTES PERCENT AUTO 11.8 % (0.0-8.0); NEUTROPHILS ABSOLUTE AUTO 4.26 K/uL (1.80-7.70); NEUTROPHILS PERCENT AUTO 64.4 % (41.0-71.0); PLATELET COUNT,PLT 177 K/uL (150-400); RED BLOOD CELL COUNT 2.85 M/uL (4.10-5.30); WHITE BLOOD CELL COUNT,WBC 6.61 K/uL (3.9-11.3)
[2024-05-14 13:24] LABS: INR 1.06 (0.86-1.11)
[2024-05-14 13:43] LABS: A/G RATIO 1.1 (0.9-1.6); BILIRUBIN TOTAL 0.5 mg/dL (0.2-1.0); CALCIUM 8.2 mg/dL (8.5-10.1); CARBON DIOXIDE,CO2 28.4 mmol/L (21.0-32.0); CREATININE 4.2 mg/dL (0.6-1.0); EST CRCL DRUG DOSING (CG) 12.34 mL/min; MAGNESIUM 1.7 mg/dL (1.8-2.4); POTASSIUM,K 3.3 mmol/L (3.5-5.1); PROTEIN TOTAL,TP 7.8 g/dL (6.4-8.2)
[2024-05-14] MEDS: Ondansetron 4 MG/2 ML SDV IVPUSH ONE (15:13)
[2024-05-14] MEDS: Sodium Chloride 0.9% 10 ML Syringe FLUSH PRN (15:13)
[2024-05-14] MEDS: Morphine 2 MG/ML SYRINGE IVPUSH ONE (15:13)
== END 2024-05-14 16:45 | disposition home or self-care (01) ==
LOC: MW.ED 11:57
DX: J84.9 Interstitial pulmonary disease, unspecified (principal); I10 Essential (primary) hypertension; Z86.73 Personal history of transient ischemic attack (TIA), and cerebral infarction without residual deficits; J44.9 Chronic obstructive pulmonary disease, unspecified; K21.9 Gastro-esophageal reflux disease without esophagitis; Z90.710 Acquired absence of both cervix and uterus; Z79.899 Other long term (current) drug therapy; Z88.6 Allergy status to analgesic agent; Z88.0 Allergy status to penicillin; Z75.8 Other problems related to medical facilities and other health care
CPT/HCPCS: 36415; 71250; 80053; 83690; 83735; 83880; 84484; 85025; 85610; 87428; 93005; 96374; 96375; 99285; J2270; J2405; J3490

== ENCOUNTER 2024-05-18 21:32 | Emergency (ER) | payer MEDICAID | END 2024-05-18 22:41 | disposition home or self-care (01) | LOC: MW.ED 21:32 | DX: T38.0X1A Poisoning by glucocorticoids and synthetic analogues, accidental (unintentional), initial encounter (principal); I12.0 Hypertensive chronic kidney disease with stage 5 chronic kidney disease or end stage renal disease; N18.6 End stage renal disease; J44.9 Chronic obstructive pulmonary disease, unspecified; K21.9 Gastro-esophageal reflux disease without esophagitis; Z90.710 Acquired absence of both cervix and uterus; Z88.8 Allergy status to other drugs, medicaments and biological substances; Z79.01 Long term (current) use of anticoagulants; Z79.51 Long term (current) use of inhaled steroids; Z79.52 Long term (current) use of systemic steroids; Z79.899 Other long term (current) drug therapy; Z99.2 Dependence on renal dialysis | CPT/HCPCS: 99282 ==

== ENCOUNTER 2024-09-20 10:48 | Emergency (ER) | payer MEDICAID ==
[2024-09-20] MEDS: Lidocaine 2% Viscous Solution 15 ML UD PO ONE (11:43)
[2024-09-20] MEDS: Benzocaine 20% Topical Spray UD MUCMEM ONE (11:43)
== END 2024-09-20 11:47 | disposition home or self-care (01) ==
LOC: MW.ED 10:48
DX: K04.7 Periapical abscess without sinus (principal); K02.9 Dental caries, unspecified; I10 Essential (primary) hypertension; K21.9 Gastro-esophageal reflux disease without esophagitis; J44.9 Chronic obstructive pulmonary disease, unspecified; E78.00 Pure hypercholesterolemia, unspecified; Z75.8 Other problems related to medical facilities and other health care; Z88.0 Allergy status to penicillin; Z88.8 Allergy status to other drugs, medicaments and biological substances; Z79.899 Other long term (current) drug therapy; Z90.710 Acquired absence of both cervix and uterus
CPT/HCPCS: 99282; A9270; 99283

== ENCOUNTER 2024-09-22 10:03 | Emergency (ER) | payer MEDICAID ==
[2024-09-22] MEDS ORDERED: Sodium Chloride 0.9% 10 ML Syringe FLUSH PRN ×2 (10:31→11:54)
[2024-09-22] MEDS: oxyCODONE 5 MG Tab PO ONE (10:46)
[2024-09-22 13:32] LABS: HEMATOCRIT 33.6 % (37.0-47.0); HEMOGLOBIN 11.7 g/dL (12.0-16.0); MEAN CORPUSCULAR HEMOGLOBIN 30.1 pg (28.0-32.0); MEAN CORPUSCULAR HGB CONC 34.8 g/dL (32.0-36.0); MEAN CORPUSCULAR VOLUME 86.4 fL (83.0-99.0); MEAN PLATELET VOLUME 9.5 fL (9.4-12.3); PLATELET COUNT,PLT 200 K/uL (150-400); RED BLOOD CELL COUNT 3.89 M/uL (4.10-5.30); WHITE BLOOD CELL COUNT,WBC 13.46 K/uL (3.9-11.3)
[2024-09-22 13:58] LABS: ALBUMIN 3.9 g/dL (3.4-5.0); BILIRUBIN TOTAL 0.6 mg/dL (0.2-1.0); CALCIUM 8.8 mg/dL (8.5-10.1); CARBON DIOXIDE,CO2 25.3 mmol/L (21.0-32.0); CREATININE 4.1 mg/dL (0.6-1.0); EST CRCL DRUG DOSING (CG) 13.48 mL/min; PROTEIN TOTAL,TP 8.5 g/dL (6.4-8.2)
[2024-09-22 14:00] LABS: A/G RATIO 0.9 (0.9-1.6); LYMPHOCYTES ABSOLUTE MAN 1.88 K/uL (1.00-4.80); LYMPHOCYTES PERCENT MAN 14 % (24-44); MONOCYTES ABSOLUTE MAN 1.88 K/uL (0.00-0.80); MONOCYTES PERCENT MAN 14 % (0-8); SEG NEUTROPHILS ABSOLUTE MAN 9.69 K/uL (1.80-7.70); SEG NEUTROPHILS PERCENT MAN 72 % (41-71)
== END 2024-09-22 16:59 | disposition left against medical advice (07) ==
LOC: MW.ED 10:03
DX: L03.211 Cellulitis of face (principal); I10 Essential (primary) hypertension; E78.00 Pure hypercholesterolemia, unspecified; J44.9 Chronic obstructive pulmonary disease, unspecified; K21.9 Gastro-esophageal reflux disease without esophagitis; Z90.710 Acquired absence of both cervix and uterus; Z79.899 Other long term (current) drug therapy; Z79.51 Long term (current) use of inhaled steroids; Z79.01 Long term (current) use of anticoagulants; Z88.0 Allergy status to penicillin; Z88.6 Allergy status to analgesic agent
CPT/HCPCS: 36415; 70486; 80053; 83605; 85025; 99284; A9270; 99283